=== PATIENT | male | born 1980 | race African-American/Black ===

== ENCOUNTER 2018-07-31 12:19 | Emergency (ER) | payer SELFPAY ==
[~2018-07-31] VITALS: Ht 172.7 cm; Wt 71.8 kg
[~2018-07-31 12:19] MED LIST: AMOXICILLIN500 MG OR; ANTI-FUNGAL12 EX; BACTRIM DS1 TAB PO; LORTAB5 OR; NO CURRENT MEDS; PERCOCET 5/325M1 TAB OR; ULTRAM50 MG OR; ZOFRAN4 MG/TAB PO
[2018-07-31] MEDS ORDERED: IBUPROFEN600 MG PO (13:15)
[2018-07-31] MEDS ORDERED: KEFLEX500 M1 PO (13:15)
[2018-07-31] MEDS ORDERED: BACTRIM DS1 TAB PO (13:15)
[2018-07-31 13:30] VITALS: BP 141/84
== END 2018-07-31 13:30 | disposition home or self-care (01) | DRG 159 ==
LOC: ED 12:19
PROC: 0C953ZZ Drainage of Upper Gingiva, Percutaneous Approach (ICD-10-PCS; principal; 2018-07-31)
DX: K04.7 Periapical abscess without sinus (principal); F17.210 Nicotine dependence, cigarettes, uncomplicated

== ENCOUNTER 2019-09-15 | Emergency (ER) | payer SELFPAY ==
[~2019-09-15] MED LIST changes: +IBUPROFEN600 MG PO; +KEFLEX500 M1 PO
[2019-09-15 12:58] LABS: HEMATOCRIT 44.2 % (39.0-50.0); HEMOGLOBIN 14.3 g/dl (14.0-18.0); IMMATURE GRANULOCYTES 0.2 % (0.0-5.0); MEAN CELL VOLUME 87.2 fL CALC (80.0-100.0); MEAN CORPUSCULAR HGB 28.2 pG CALC (26.0-32.0); MEAN CORPUSCULAR HGB CONC 32.4 g/L CALC (32.0-36.0); NEUT# 7.3 thou/uL (1.82-7.42); RED BLOOD COUNT 5.07 mill/uL (4.70-6.10); RED CELL DISTRI WIDTH 16.2 % (11.5-15.5)
[2019-09-15 13:16] LABS: ALBUMIN 4.9 g/dL (3.2-5.0); ALKALINE PHOSPHATASE 99 u/l (38-126); ANION GAP 15 (6-22 (CALC)); BILIRUBIN, TOTAL 0.5 mg/dL (0.0-1.4); BUN 14 mg/dL (9-20); BUN/CREATININE RATIO 13 (12-20 (CALC)); CARBON DIOXIDE 25 mmol/l (22-30); CHLORIDE 105 mmol/l (95-108); CREATININE 1.1 mg/dL (0.7-1.3); GFR > 60 ML/MIN (>=60 (CALC)); GFR FOR AFR.AMER. > 60 ML/MIN (>=60 (CALC)); LIPASE 34 u/l (23-300); POTASSIUM 4.5 mmol/l (3.5-5.1); SGOT/AST 36 u/l (17-59); SODIUM 140 mmol/l (137-146); TOTAL PROTEIN 8.9 g/dL (6.3-8.2)
[2019-09-15] MEDS ORDERED: ZOFRAN4 MG/TAB PO (15:48)
== END 2019-09-15 16:40 | disposition home or self-care (01) | DRG 392 ==
DX: K52.9 Noninfective gastroenteritis and colitis, unspecified (principal); F17.200 Nicotine dependence, unspecified, uncomplicated

== ENCOUNTER 2024-03-16 18:42 | Emergency (ER) | payer BC ==
[~2024-03-16] VITALS: Ht 175.3 cm; Wt 80.0 kg
[2024-03-16] MEDS ORDERED: SODIUM CHLORIDE 0.9% 1,000 ML IV STA ×2 (19:46→21:10)
[2024-03-16] MEDS ORDERED: KETOROLAC TROMETHAMINE 30 MG/ML SDV IV ONE (19:50)
[2024-03-16] MEDS ORDERED: PROMETHAZINE HCL 25 MG/ML AMP IV ONE (19:50)
[2024-03-16 20:06] LABS: BASO% 0.1 % (0-3); EOS% 0.1 % (0-8); HEMATOCRIT 48.1 % (39.0-50.0); HEMOGLOBIN 15.9 g/dl (14.0-18.0); IMMATURE GRANULOCYTES 0.2 % (0.0-5.0); MEAN CELL VOLUME 86.5 fL CALC (80.0-100.0); MEAN CORPUSCULAR HGB 28.6 pG CALC (26.0-32.0); MEAN CORPUSCULAR HGB CONC 33.1 g/dL CAL (32.0-36.0); MONO% 12.7 % (2-13); NEUT# 4.64 thou/uL (1.82-7.42); NEUT% 53.9 % (42-76); RED BLOOD COUNT 5.56 mill/uL (4.70-6.10); RED CELL DISTRI WIDTH 15.3 % (11.5-15.5)
[2024-03-16 20:21] LABS: BILIRUBIN, TOTAL 0.6 mg/dL (0.2-1.3); CREATININE 1.3 mg/dL (0.7-1.3); MAGNESIUM 2.2 mg/dL (1.6-2.3); POTASSIUM 4.5 mmol/l (3.5-5.1); TOTAL PROTEIN 9.3 g/dL (6.3-8.2)
[2024-03-16 20:31] VITALS: BP 96/47
[2024-03-16 21:01] VITALS: BP 116/62
[2024-03-16 21:30] VITALS: BP 118/72
[2024-03-16 21:54] VITALS: BP 189/93
[2024-03-16 21:56] LABS: URINE BLOOD DIPSTICK Negative (NEGATIVE); URINE COLOR Yellow; URINE GLUCOSE - DIPSTICK Negative (NEGATIVE); URINE KETONE 15 mg/dL (NEGATIVE); URINE LEUK ESTERASE Negative (NEGATIVE); URINE NITRITE - DIPSTICK Negative (Negative); URINE PROTEIN - DIPSTICK Negative (NEG-TRACE); URINE SPECIFIC GRAVITY 1.015; URINE UROBILINOGEN - DIPSTICK 0.2 E.U./dL (0.2)
[2024-03-16 22:01] VITALS: BP 149/85
[2024-03-16] MEDS ORDERED: DICYCLOMINE HYD10 MG PO (22:05)
[2024-03-16] MEDS ORDERED: PROMETHAZINE HY25 M1 PO (22:05)
[2024-03-16 22:21] VITALS: BP 149/85
== END 2024-03-16 22:34 | disposition home or self-care (01) | DRG 392 ==
LOC: ED 18:42
PROVIDERS: Family Medicine
DX: K52.9 Noninfective gastroenteritis and colitis, unspecified (principal); F17.200 Nicotine dependence, unspecified, uncomplicated; Z20.822 Contact with and (suspected) exposure to COVID-19